=== PATIENT | male | born 1990 | race Caucasian/White ===

== ENCOUNTER 2018-04-29 03:14 | Emergency (ER) | payer OTHER, SELFPAY ==
[2018-04-29 03:16] VITALS: BP 132/97; PULSE 80; RESP 18; TEMP 36.5; O2SAT 100
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
--- NOTE | 2018-04-29 03:30 | DI.RAD_ITS ---
SYMPTOM/DIAGNOSIS: TRAUMA RIGHT HAND: Four Views. No bone or joint abnormality is identified. IMPRESSION: Negative examination.
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
== END 2018-04-29 04:09 | disposition home or self-care (01) ==
PROVIDERS: Emergency Provider Emergency Medicine
DX: S60.211A Contusion of right wrist, initial encounter (principal); S60.221A Contusion of right hand, initial encounter; Y04.0XXA Assault by unarmed brawl or fight, initial encounter; Y99.0 Civilian activity done for income or pay
CPT/HCPCS: 99283; 73130

== ENCOUNTER 2018-08-21 10:50 | Emergency (ER) | payer BC, SELFPAY ==
[2018-08-21 10:54] VITALS: BP 159/81; PULSE 86; RESP 12; TEMP 37.1; O2SAT 99
[2018-08-21 11:04] VITALS: RESP 12
--- NOTE | 2018-08-21 11:30 | DI.CT_ITS ---
SYMPTOMS/DIAGNOSIS: PAIN IN RT NECK, SPITTING BLOOD, CHEWS TOBACCO CT SCAN OF THE NECK: CT scan of the neck was performed following the uneventful administration of intravenous contrast material. In the midline posteriorly at the level of the aryepiglottic folds there does appear to be a rounded isodense soft tissue mass measuring approximately 1.4 cm transverse x 0.9 cm AP x 0.9 cm craniocaudad. There is mild narrowing of the airway present. No significant cervical adenopathy is present. The parotid and submandibular glands appear grossly unremarkable. The base of the tongue has a normal appearance. The vascular structures appear grossly unremarkable. The visualized paranasal sinuses are clear. The mastoid air cells are well pneumatized. There is straightening of the normal cervical lordosis. IMPRESSION: 1.4 x 1 cm soft tissue mass suggested in the region of aryepiglottic folds in the midline. Neoplasm can not be excluded. Directed visualization is recommended for further evaluation. ENT consult is recommended. The findings were discussed with Dr. Deangelo Sanchez of the emergency department on the date of the examination.
--- NOTE | 2018-08-21 11:36 | W.ED.GENAD ---
Discharge Plan Disposition Patient Disposition: HOME Discharge Details Chief Complaint: GenMedical Clinical Impression: Hypopharyngeal mass Primary Care Provider: None,None ED Provider: Deangelo Sanchez Home Meds and New Rx's Prescriptions: New nicotine 14 mg/24 hr patch 24 hour 1 patch TD DAILY Qty: 21 RF: 0 Discharge Instructions Instructions: How to Quit Using Smokeless Tobacco (ED) Additional Instructions: Please go immediately to [facility] ear nose and throat clinic to be seen by Dr. Stroud at or before 4pm today. Be sure to follow-up with dermatology regarding atypical appearing lesion on her back. This follow-up should occur as soon as possible. Additional diagnostic testing may be necessary. Please contact your primary care physician to arrange follow-up. Return to the ER for any worsening or new concerning symptoms. Medical Decision Making 11:42 --28-year-old male who has chewed tobacco daily for the past 12 years, here with right-sided neck pain over the past few months and more recently treated for right ear infection, here today with sore throat on the right side as well as 3 days of intermittent spitting up blood-tinged sputum with clearing his throat in the morning. Patient is saturating well in no respiratory distress. He has no stridor or hoarseness to his voice. I am not able to appreciate anything on exam of his posterior oropharynx. Consider deep space infection versus mass versus mucosal irritation. Plan to CT cervical spine. 12:28 --CT of the neck interpreted by radiology: 1 cm midline mass in the hypopharynx with focal thickening of mucosal membrane, no airway compromise. [facility] contacted for consult. CT sent to [facility] for review. 2:24 -- Patient reassessed and remains stable. No airway compromise. Not coughing any blood. Spoke with Dr. Stroud (ENT at [facility]) she would like to see patient in clinic today and recommends discharge to drive to [facility] to be seen this afternoon. I discussed plan with patient and he is in agreement. Patient was advised of atypical appearing nevi on his back and concern for potential melanoma. I explained the importance of timely follow-up with dermatology. Patient verbalized understanding of my concern and plans to arrange for timely outpatient follow-up. HPI General Mode of arrival: ambulatory. Date/Time Provider Initiated Documentation: 08/21/18 10:52. Limitations to Documentation: no limitations. Information obtained by: patient. HPI Narrative: 28-year-old male presents with chief complaint of neck pain. Patient notes that he has had right-sided neck pain laterally for the past 3 months. He has been seen by physical therapy for this. Physical therapy is not helping. He also notes that he recently was seen at [place] emergency department for right ear and diagnosed with an ear infection on the right. He completed a course of amoxicillin which he thinks may have helped his ear pain. He notes associated mild sore throat on the right side, pressure sensation in his right ear, intermittent tinnitus of the right ear. Most concerning form today is that he has had 3-4 days of intermittent bloody sputum. He notes that in the morning he spits out some blood-tinged sputum with clearing throat. He does chew tobacco daily for 12 years. No fever, chills or unintentional weight loss. Related Data Home Medications Medication Instructions Recorded Confirmed nicotine 1 patch TD DAILY #21 each 08/21/18 Previous Rx's Medication Instructions Recorded nicotine 1 patch TD DAILY #21 each 08/21/18 Allergies Allergy/AdvReac Type Severity Reaction Status Date / Time No Known Allergies Allergy Unverified 08/21/18 11:00 General Stated Complaint: GenMedical RAIMUNDO: 4 Review of Systems Review of Systems All systems reviewed & are unremarkable except as noted in HPI and below ENT Reports as per HPI Cardiovascular Denies dyspnea Respiratory Denies cough and Denies dyspnea [facility] Social History marital status details: Deidre current occupational status: employed current occupation: [employer] Smoking and Tabacco status: Current every day Exam Const General: cooperative and no acute distress HENMT Head: normocephalic and atraumatic Ears: hearing grossly normal bilaterally and external ears normal General nose exam: external nose normal and nares normal Face and sinus: sinuses nontender and face symmetric Mouth: moist mucous membranes Throat: posterior oropharynx normal, tonsils normal and uvula midline Eyes Conjunctivae: normal conjunctivae Sclera: normal sclerae EOM: EOM intact bilaterally Neck Neck: trachea midline, supple, no anterior neck swelling, no lymphadenopathy noted, tender (rt lateral neck), no torticollis, no JVD and No submandibular swelling Thyroid: thyroid normal Carotids: no bruits Lymphatic: no lymphadenopathy noted Resp Auscultation: clear to auscultation bilaterally, no rales, no rhonchi and no wheezes Cardio Jugular venous pressure: no JVD Rate: regular rate and not tachycardic Rhythm: regular rhythm GI Palpation: soft, not firm, no guarding, no masses, not rigid and nontender Skin Lesions: lesion noted (mid upper back atypical appearing nevi vs melanoma) Neuro General: alert, awake, oriented x3 and tone normal Extrem General: no edema Psych Appearance: grossly normal Mental Status: mental status grossly normal Speech and Movement: speech and movement normal Course Vital Signs Temperature 37.1 C 08/21/18 10:54 Pulse 86 08/21/18 10:54 Respiratory Rate 12 08/21/18 10:54 Blood Pressure 159/81 H 08/21/18 10:54 Pulse Oximetry 99 08/21/18 10:54 Temperature 37.1 C 08/21/18 10:54 Temperature Source Temporal Artery Scan 08/21/18 10:54 Pulse 86 08/21/18 10:54 Respiratory Rate 12 08/21/18 11:04 Respiratory Effort 08/21/18 11:04 Respiratory Depth Normal 08/21/18 11:04 Blood Pressure 159/81 H 08/21/18 10:54 Blood Pressure Position Sitting 08/21/18 10:54 Pulse Oximetry 99 08/21/18 10:54 Oxygen Delivery Method Room Air 08/21/18 10:54 Oxygen Flow Rate 0 08/21/18 10:54 Pain Level 6 08/21/18 10:54
--- NOTE | 2018-08-21 11:43 | ED.GENADUL_ITS ---
Discharge Plan Disposition Patient Disposition: HOME Discharge Details Chief Complaint: GenMedical Clinical Impression: Hypopharyngeal mass Primary Care Provider: None,None ED Provider: Deangelo Sanchez Home Meds and New Rx's Prescriptions: New nicotine 14 mg/24 hr patch 24 hour 1 patch TD DAILY Qty: 21 RF: 0 Discharge Instructions Instructions: How to Quit Using Smokeless Tobacco (ED) Additional Instructions: Please go immediately to [facility] ear nose and throat clinic to be seen by Dr. Stroud at or before 4pm today. Be sure to follow-up with dermatology regarding atypical appearing lesion on her back. This follow-up should occur as soon as possible. Additional diagnostic testing may be necessary. Please contact your primary care physician to arrange follow-up. Return to the ER for any worsening or new concerning symptoms. Medical Decision Making 11:42 --28-year-old male who has chewed tobacco daily for the past 12 years, here with right-sided neck pain over the past few months and more recently treated for right ear infection, here today with sore throat on the right side as well as 3 days of intermittent spitting up blood-tinged sputum with clearing his throat in the morning. Patient is saturating well in no respiratory distress. He has no stridor or hoarseness to his voice. I am not able to ap preciate anything on exam of his posterior oropharynx. Consider deep space infection versus mass versus mucosal irritation. Plan to CT cervical spine. 12:28 --CT of the neck interpreted by radiology: 1 cm midline mass in the hypopharynx with focal thickening of mucosal membrane, no airway compromise. [facility] [place] for [place]. CT sent to [facility] for review. 2:24 -- Patient reassessed and remains stable. No airway compromise. Not coughing any blood. Spoke with Dr. Stroud ([place] at [facility] she would like to see patient in clinic today and recommends discharge to drive to [facility] to be seen this afternoon. I discussed plan with patient and he is in agreement. Patient was advised of atypical appearing nevi on his back and concern for potential melanoma. I explained the importance of timely follow-up with dermatology. Patient verbalized understanding of my concern and plans to arrange for timely outpatient follow-up. HPI General Mode of arrival: ambulatory . Date/Time Provider Initiated Documentation: 08/21/18 10:52 . Limitations to Documentation: no limitations . Information obtained by: patient . HPI Narrative: 28-year-old male presents with chief complaint of neck pain. Patient notes that he has had right-sided neck pain laterally for the past 3 months. He has been seen by physical therapy for this. Physical therapy is not helping. He also notes that he recently was seen at [place] emergency department for right ear and diagnosed with an ear infection on the right. He completed a course of amoxicillin which he thinks may have helped his ear pain. He notes associated mild sore throat on the right side, pressure sensation in his right ear, intermittent tinnitus of the right ear. Most concerning form today is that he has had 3-4 days of intermittent bloody sputum. He notes that in the morning he spits out some blood-tinged sputum with clearing throat. He does chew tobacco daily for 12 years. No fever, chills or unintentional weight loss. Related Data Home Medications Medication Instructions Recorded Confirmed nicotine 1 patch TD DAILY #21 each 08/21/18 Previous Rx's Medication Instructions Recorded nicotine 1 patch TD DAILY #21 each 08/21/18 Allergies Allergy/AdvReac Type Severity Reaction Status Date / Time No Known Allergies Allergy Unverified 08/21/18 11:00 General Stated Complaint: GenMedical RAIMUNDO: 4 Review of Systems Review of Systems All systems reviewed & are unremarkable except as noted in HPI and below ENT Reports as per HPI Cardiovascular Denies dyspnea Respiratory Denies cough and Denies dyspnea [facility] Social History marital status details: Deidre current occupational status: employed current occupation: [employer] Smoking and Tabacco status: Current every day Exam Const General: cooperative and no acute distress HENMI Head: normocephalic and atraumatic Ears: hearing grossly normal bilaterally and external ears normal General nose exam: external nose normal and nares normal Face and sinus: sinuses nontender and face symmetric Mouth: moist mucous membranes Throat: posterior oropharynx normal, tonsils normal and uvula midline Eyes Conjunctivae: normal conjunctivae Sclera: normal sclerae EOM: EOM intact bilaterally Neck Neck: trachea midline, supple, no anterior neck swelling, no lymphadenopathy noted, tender (rt lateral neck), no torticollis, no JVD and No submandibular swelling Thyroid: thyroid normal Carotids: no bruits Lymphatic: no lymphadenopathy noted Resp Auscultation: clear to auscultation bilaterally, no rales, no rhonchi and no wheezes Cardio Jugular venous pressure: no JVD Rate: regular rate and not tachycardic Rhythm: regular rhythm GI Palpation: soft, not firm, no guarding, no masses, not rigid and nontender Skin Lesions: lesion noted (mid upper back atypical appearing nevi vs melanoma) Neuro General: alert, awake, oriented x3 and tone normal Extrem General: no edema Psych Appearance: grossly normal Mental Status: mental status grossly normal Speech and Movement: speech and movement normal Course Vital Signs Temperature 37.1 C 08/21/18 10:54 Pulse 86 08/21/18 10:54 Respiratory Rate 12 08/21/18 10:54 Blood Pressure 159/81 H 08/21/18 10:54 Pulse Oximetry 99 08/21/18 10:54 Temperature 37.1 C 08/21/18 10:54 Temperature Source Temporal Artery Scan 08/21/18 10:54 Pulse 86 08/21/18 10:54 Respiratory Rate 12 08/21/18 11:04 Respiratory Effort 08/21/18 11:04 Respiratory Depth Normal 08/21/18 11:04 Blood Pressure 159/81 H 08/21/18 10:54 Blood Pressure Position Sitting 08/21/18 10:54 Pulse Oximetry 99 08/21/18 10:54 Oxygen Delivery Method Room Air 08/21/18 10:54 Oxygen Flow Rate 0 08/21/18 10:54 Pain Level 6 08/21/18 10:54
[2018-08-21 11:52] LABS: Abs Immature Grans 0.01 k/cumm (0.0-0.09); Absolute Basophil Count 0.04 k/cumm (0.0-0.2); Absolute Eosinophil Count 0.08 k/cumm (0.0-0.7); Absolute Monocyte Count 0.68 k/cumm (0.11-0.7); Absolute Neutrophil Count 6.25 k/cumm (1.2-6.7); Basophils % 0.5; HCT 49.2 % (40.0-50.0); HGB 16.8 g/dL (13.5-17.5); Immature Grans % 0.1; Lymphocytes % 10.2; Mean Corp. HGB Concentration 34.1 g/dL (32.0-36.0); Mean Corpuscular Hemoglobin 29.7 pg (27.0-33.0); Mean Corpuscular Volume 87.1 fL (80-95); Mean Platelet Volume 9.5 fL (8.0-11.0); Monocytes % 8.7; Neutrophils % 79.5; Platelet Count 210 x1000/uL (130-400); RBC 5.65 m/cumm (4.50-6.00); RBC Distribution Width 13.1 % (11.8-14.1); White Blood Cell Count 7.86 k/cumm (4.4-10.8)
[2018-08-21] MEDS: Omnipaque 350 MG/ML 100 ML BTL IJ (12:03)
[2018-08-21 12:04] LABS: ALT 57 U/L (12-78); AST 40 U/L (15-37); Albumin 4.8 g/dL (3.4-5.0); Alkaline Phosphatase 95 U/L (46-116); Anion Gap 9.2 mmol/L (3-11); BUN 13 mg/dL (7-18); Bilirubin, Total 1.2 mg/dL (0.2-1.0); CO2 29.8 mmol/L (21.0-32.0); CREATININE 0.88 mg/dL (0.70-1.30); Calcium 9.5 mg/dL (8.5-10.1); Chloride 99 mmol/L (98-107); Glucose 99 mg/dL (70-100); Potassium 4.2 mmol/L (3.5-5.1); Sodium 138 mmol/L (136-145); Total Protein 8.1 g/dL (6.4-8.2)
[2018-08-21 12:33] VITALS: BP 137/75; PULSE 80; RESP 16; TEMP 36.7; O2SAT 100
[2018-08-21 14:24] VITALS: BP 126/76; PULSE 78; RESP 16; TEMP 36.7; O2SAT 100
--- NOTE | 2018-08-22 08:04 | PDOC.ERCMPRO ---
Care Management Progress Note 08/22-Dr. Sanchez requested assistance with establishing a PCP for neck mass. Patient needs to be established soon. Patient was referred to ENT at [facility] and was sent there on 08/21 as outpatient (Please see provider note). Terese Emmanuel chronic disease manager. Referral, alone with demographics and provider note, faxed to [facility] this am.
--- NOTE | 2018-08-22 08:06 | CMPROGNOTE_ITS ---
Care Management Progress Note 08/22-Dr. Sanchez requested assistance with establishing a PCP for neck mass. Patient needs to be established soon. Patient was referred to ENT at [facility] and was sent there on 08/21 as outpatient (Please see provider note). Terese Emmanuel production weigher. Referral, alone with demographics and provider note, faxed to [facility] this am.
== END 2018-08-21 14:25 | disposition home or self-care (01) ==
PROVIDERS: Emergency Provider Student in an Organized Health Care Education/Training Program; PCP Nurse Practitioner Family
DX: J39.2 Other diseases of pharynx (principal); F17.220 Nicotine dependence, chewing tobacco, uncomplicated
CPT/HCPCS: 36415; 70491; 80053; 99285; 85025; 99284; J3490